=== PATIENT | male | born 1945 | race Caucasian/White ===

== ENCOUNTER → 2020-03-20 01:11 | Outpatient (CLI) | payer MEDICARE, SELFPAY ==
[2020-03-20 18:28] LABS: SARS-CoV-2 RNA PCR Negative
== END ==
PROVIDERS: Visit Provider Urology
DX: Z01.812 Encounter for preprocedural laboratory examination (principal); Z20.822 Contact with and (suspected) exposure to COVID-19
CPT/HCPCS: C9803; U0003; U0005

== ENCOUNTER 2020-03-23 00:05 | Day surgery (SDC) | payer MEDICARE, OTHER, SELFPAY ==
[2020-03-09 09:51] VITALS: BMI 30.7
--- NOTE | 2020-03-20 07:59 | P.HP_ITS ---
H&P: HPI History of Present Illness Date/Time: 03/20/20 07:59 Chief Complaint: Urinary difficulty/frequency Narrative: Timo Pineda is a 74 year old male who was originally referred to my partner, Dr. Fatemeh Maher, with findings of a calcified nodule in his bladder and on CT scan of the abdomen and pelvis. This turned out to be a median lobe with a partially calcified rim (according to Dr. Maher and cysto scopy). He is markedly symptomatic prostatism and is not felt to be a candidate for minimally invasive procedure such as a Urolift. After discussion of therapeutic options including ongoing medical management, he has elected for a TURP. He is aware of the risk of this procedure including persistent voiding symptoms, hematuria, erectile dysfunction, urinary incontinence and retrograde ejaculation. Review of Systems Cardiovascular: Cardiovascular: Denies chest pain, Denies lightheadedness, Denies palpitations and Denies dyspnea Respiratory: Respiratory: Denies dyspnea Gastrointestinal: Gastrointestinal: Denies diarrhea, Denies nausea and Denies vomiting Genitourinary: Genitourinary: Denies hematuria and Denies dysuria Endocrine: Endocrine: Denies palpitations [facility] Social History Social History Smoking status: Former smoker Additional smoking assessment comments: STATES 2PK/DAY/30=YRS QUIT 1994 Alcohol intake: current Substance use: never Substance use type: does not use Spiritual care concerns: No Meds Home Medications and Allergies Home Medications Medication Instructions Recorded Confirmed Type acetaminophen [Tylenol Extra 1,000 mg PO Q6H PRN 03/09/20 03/09/20 History Strength] amlodipine-benazepril [Lotrel] 1 cap PO HS 03/09/20 03/09/20 History aspirin [Aspirin Low Dose] 81 mg PO DAILY 03/09/20 03/09/20 History meloxicam [Mobic] 15 mg PO DAILY 03/09/20 03/09/20 History paroxetine HCl [Paxil] 10 mg PO QAM 03/09/20 03/09/20 History rosuvastatin [Crestor] 20 mg PO QAM 03/09/20 03/09/20 History Allergies Allergy/AdvReac Type Severity Reaction Status Date / Time No Known Allergies Allergy Verified 03/09/20 09:47 Exam Const: General: no acute distress Resp: Effort & Inspection: normal respiratory effort GI: Inspection: non-distended GI Palp: No abdominal tenderness and No Guarding due to palpation present (GI) Auscultation: normal bowel sounds Assessment and Plan Assessment and plan (1) BPH loc w urin obs/LUTS: Code(s): N40.1 - Benign prostatic hyperplasia with lower urinary tract symptoms Status: Acute Assessment and Plan: * TURP
[2020-03-23] VITALS (11 sets, daily range): BP systolic 112–172; BP diastolic 58–82; PULSE 56–75; RESP 10–18; TEMP 36.1–36.9; O2SAT 96–100; BMI 31.4
--- NOTE | 2020-03-23 06:36 | WPDHPUPDATE1 ---
History and Physical Update Update Date/Time: 03/23/20 06:36 History and Physical has been reviewed, including an updated exam of the patient. There are NO changes in the patient's condition. Risks, benefits, and alternatives have been discussed and questions answered. Patient agrees to proceed with procedure.
[2020-03-23] MEDS: LACTATED RINGERS 1,000 ML 30 ML IV CONT ×2 (12:23→14:20)
--- NOTE | 2020-03-23 12:24 | WPDANESEPPF ---
Anes - Initial Pre Proc Eval Procedure: Operation Date: 03/23/20 13:15 Proposed Procedures p Trans Urethral Resection Prostate - Damien Miguel MD Date/Time: 03/23/20 12:24 Surgeon: Damien Miguel MD Pre Op Diagnosis: BPH Patient Data Age: 74 Gender: M Height: 5 ft 8.5 in Weight: 93.18 kg Allergies Allergy/AdvReac Type Severity Reaction Status Date / Time No Known Allergies Allergy Verified 03/09/20 09:47 Home Medications Medication Instructions Recorded Confirmed Type acetaminophen [Tylenol Extra 1,000 mg PO Q6H PRN 03/09/20 03/09/20 History Strength] amlodipine-benazepril [Lotrel] 1 cap PO HS 03/09/20 03/09/20 History aspirin [Aspirin Low Dose] 81 mg PO DAILY 03/09/20 03/09/20 History meloxicam [Mobic] 15 mg PO DAILY 03/09/20 03/09/20 History paroxetine HCl [Paxil] 10 mg PO QAM 03/09/20 03/09/20 History rosuvastatin [Crestor] 20 mg PO QAM 03/09/20 03/09/20 History Patient hx anesthesia problems: none Family hx anesthesia problems: none [facility] Past Medical History Medical History (Updated 03/23/20 @ 12:24 by Jose Antonio Joseph MD) Anxiety H/O colon cancer, stage I Hyperlipidemia Hypertension Peripheral vascular disease Social History Social History Smoking status: Former smoker Additional smoking assessment comments: STATES 2PK/DAY/30=YRS QUIT 1994 Alcohol intake: current Alcohol use details: STATES MAYBE 3-4 DRINKS A MONTH Substance use: never Substance use type: does not use Living arrangements: with family Spiritual care concerns: No Anes - Eval Final PreProcedure Day of Procedure 03/23/20 12:24 Patient weight: obese Heart: regular rate and rhythm Lungs: clear to auscultation Airway: Mallampati scale class II Neurological: alert and oriented Last oral intake: >/= 8 hours ASA classification: III Emergent: no Anesthetic plan: proceed Anesthesia type and monitoring: general LMA and standard monitoring Informed Consent: The patient's anesthetic plan and its attendant risks and benefits were discussed with the patient/family/POA. Questions were solicited and answers provided to the satisfaction of the patient/family/POA.
[2020-03-23] MEDS: ceFAZolin 2 GM/D5W 50 ML 2 GM/50 ML BAG IVPB (13:10)
--- NOTE | 2020-03-23 14:32 | P.OP_ITS ---
Procedure Note - Detailed Date of procedure: 03/23/20 Pre-op diagnosis: BPH Post-op diagnosis: same Procedure performed: TURP Description of procedure: Patient is brought to the operative suite where he has prepped and draped in routine sterile fashion while in a dorsal lithotomy position after the uneventful induction of a general LMA anesthetic. Twenty- seven F resectoscope sheath was placed in his bladder. Careful inspection reveals a very unusual configuration to his prostatic urethra and bladder neck. He appears to have a large gross arising from around the bladder neck and growing into the left posterior lateral aspect of the bladder. This probably measures 6-7 cm in diameter and is covered by calcified rim. It looks to be arising from the prostate in line anticipation is that this is within unusual variant of either lateral lobe or median lobe of his prostate. In addition to that he has large lateral lobe enlargement. I resected this lesion in its entirety with a the electrode. It was somewhat difficult because of calcified rim. I was able to identify the ureteral orifice. There was some scope trauma to the area around the orifice but was not resected or cauterized. Then resected the entire left lateral lobe in the anterior portion of the right lateral lobe. Because of time I opted not to pursue aggressive resection of the posterior aspect of the right lateral lobe. Hemostasis attained with a loop e lectrode and rollerball electrode after evacuating all chips. Twenty-four F hematuria catheter was placed to continuous irrigation. Efflux was clear determination. Anesthesia: GLMA Surgeon: Damien Miguel MD Estimated blood loss (mL): 125 Drains: Yes (24F hematuria) Packing: No Pathology: yes Complications: No immediate complications Condition: stable Disposition: PACU
[2020-03-23] MEDS: fentaNYL CITRATE INJ (*CRX) 100 MCG/2 ML VIAL 25 MCG IV PUSH ×8 (14:33→15:18)
[2020-03-23] MEDS: KETOROLAC 30 MG/ML VIAL (*BKC) IV PUSH (14:53)
--- NOTE | 2020-03-23 15:50 | ADMGEN ---
This patient, Timo Pineda, was admitted to Medical Room 341-01. Patient/family oriented to hospital policies and general routines including ID bracelet, bed and alarms, visiting hours, pain management, procedures, bathroom and other care routines, personal items, smoking policy, room service/diet, and visiting hours. Information on how to activate the Rapid Response Team has been discussed. Patient/Family are encouraged to report perceived risks to care and to ask questions if they do not understand what they are told or what they should do.
[2020-03-23] MEDS: HYOSCYAMINE SULFATE 0.125 MG TABLET SUBLINGUAL ×2 (18:52→22:04)
[2020-03-23] MEDS: DOCUSATE SODIUM 100 MG CAPSULE PO (18:56)
[2020-03-23] MEDS: lisinopriL 20 MG TABLET 40 MG PO (22:01)
[2020-03-23] MEDS: amLODIPine BESYLATE 5 MG TABLET 10 MG PO (22:02)
[2020-03-24] MEDS: HYOSCYAMINE SULFATE 0.125 MG TABLET SUBLINGUAL ×4 (01:24→12:31)
[2020-03-24 05:30] VITALS: BP 123/49; PULSE 57; RESP 16; TEMP 36.1; O2SAT 100
[2020-03-24 06:06] LABS: Hematocrit 34.5 % (42.0-52.0)
[2020-03-24 06:15] LABS: Anion Gap 3 mmol/L (8-16); Blood Urea Nitrogen 29 mg/dL (9-20); Calcium 8.5 mg/dL (8.4-10.2); Carbon Dioxide 27 mmol/L (22-30); Chloride 105 mmol/L (98-107); Estimated CRCL calculation 40 ml/min; Estimated Glomerular Filt Rate 40; Glucose 128 mg/dL (75-110); Potassium 4.6 mmol/L (3.4-5.0); Sodium 135 mmol/L (137-145)
--- NOTE | 2020-03-24 06:51 | WPDUROPN2 ---
Progress Note: A&P Assessment and Plan (1) BPH loc w urin obs/LUTS: Code(s): N40.1 - Benign prostatic hyperplasia with lower urinary tract symptoms Status: Acute Assessment and Plan: POD #1 large TURP. Urine clear this morning after some hematuria last night. Will stop CBI. Voiding trial later today if urine remains clear. If not today, will keep overnight and try again for voiding trial Sat. morning. Subjective Subjective Date/Time Seen: 03/24/20 06:51 POD #1 TURP (large) Initial bladder spasms and hematuria last night - resolved this morning Review of Systems Cardiovascular: Cardiovascular: Denies chest pain, Denies lightheadedness, Denies palpitations and Denies dyspnea Respiratory: Respiratory: Denies dyspnea Gastrointestinal: Gastrointestinal: Denies diarrhea, Denies nausea and Denies vomiting Genitourinary: Genitourinary: Denies hematuria and Denies dysuria Endocrine: Endocrine: Denies palpitations Exam Const: General: no acute distress Resp: Effort & Inspection: normal respiratory effort GI: Inspection: non-distended GI Palp: No abdominal tenderness and No Guarding due to palpation present (GI) Auscultation: normal bowel sounds Urinary Catheter: Urinary Catheter: patent and draining and urine clear Objective Data Vital Signs Vital Signs: Vital Signs - 24 hr 03/23/20 11:37 03/23/20 14:20 03/23/20 14:35 Temperature 97.5 F L 98.4 F Pulse Rate 75 56 L 61 Respiratory Rate 16 14 10 L Blood Pressure 166/76 H 112/58 L 151/78 H Pulse Oximetry 99 98 100 03/23/20 14:50 03/23/20 15:05 03/23/20 15:20 Temperature Pulse Rate 66 61 66 Respiratory Rate 14 10 L 12 Blood Pressure 172/82 H 150/67 H Pulse Oximetry 98 97 96 03/23/20 15:31 03/23/20 15:46 03/23/20 16:16 Temperature 97.2 F L 97.1 F L 97.3 F L Pulse Rate 69 60 61 Respiratory Rate 16 16 16 Blood Pressure 172/72 H 157/64 H 149/65 H Pulse Oximetry 97 98 97 03/23/20 17:16 03/23/20 20:47 03/24/20 05:30 Temperature 97.1 F L 97 F L 97 F L Pulse Rate 62 63 57 L Respiratory Rate 16 18 16 Blood Pressure 128/70 122/61 123/49 L Pulse Oximetry 97 97 100 Intake/Output Intake/Output: Intake & Output 03/21/20 03/22/20 03/23/20 03/24/20 23:59 23:59 23:59 23:59 Intake Total 1080 50 Output Total 4550 Balance -3470 50 Meds/Results Medications: Active Medications Generic Name Dose Route Start Last Admin Trade Name Freq PRN Reason Stop Dose Admin Hydrocodone Bitart/Acetaminophen 1 tab 03/23/20 15:31 Hydrocodone/Acetaminophen (*Crx) 5-325 Mg Tablet PO Q4H PRN Pain Rated 1-6 Amlodipine Besylate 10 mg 03/23/20 21:00 03/23/20 22:02 Amlodipine Besylate 5 Mg Tablet PO 10 mg HS JOSE Administration Cephalexin HCl 500 mg 03/24/20 13:00 Cephalexin 500 Mg Capsule PO QID JOSE Docusate Sodium 100 mg 03/23/20 17:00 03/23/20 18:56 Docusate Sodium 100 Mg Capsule PO 100 mg BID JOSE Administration Hyoscyamine 0.125 mg 03/23/20 22:00 03/24/20 05:29 Hyoscyamine Sulfate 0.125 Mg Tablet SUBLINGUAL 0.125 mg Q4HR JOSE Administration Lisinopril 40 mg 03/23/20 21:00 03/23/20 22:01 Lisinopril 20 Mg Tablet PO 40 mg HS JOSE Administration Morphine Sulfate 2 mg 03/23/20 15:31 Morphine Sulfate (*Crx) 2 Mg/Ml Inj IV PUSH Q2H PRN Pain Rated 7-10 Naloxone HCl 0.1 mg 03/23/20 15:31 Naloxone Hcl 0.4 Mg/Ml Vial IV PUSH Q2M PRN Opiate Reversal Ondansetron HCl 4 mg 03/23/20 15:31 Ondansetron Inj 4 Mg/2 Ml Vial IV PUSH Q12H PRN Nausea And Vomiting Paroxetine HCl 10 mg 03/24/20 09:00 Paroxetine 10 Mg Tablet PO QAM [facility] Rosuvastatin Calcium 20 mg 03/24/20 09:00 [facility]uvastatin 10 [facility] Labs: Laboratory Results - last 24 hr 03/24/20 03/24/20 05:32 05:32 Hgb 12.0 L Hct 34.5 L Sodium 135 L Potassium 4.6 Chloride 105 Carbon Dioxide 27 Anion Gap
[2020-03-24] MEDS: ROSUVASTATIN 10 MG TABLET 20 MG PO (08:11)
[2020-03-24] MEDS: DOCUSATE SODIUM 100 MG CAPSULE PO (08:11)
[2020-03-24] MEDS: PARoxetine 10 MG TABLET PO (08:11)
[2020-03-24] MEDS: HYDROcodone/acetaminophen (*CRX) 5-325 MG TABLET 1 TAB PO ×2 (08:14→12:35)
--- NOTE | 2020-03-24 10:57 | WPDANESPN ---
Anes - Prog Note Post-Op Date/Time: 03/24/20 10:57 Cardiovascular status: normal Respiratory status: normal Airway patency: baseline Mental status: baseline Post-Op hydration status: normal Vital Signs: Last Vital Signs Temp 36.1 C L 03/24/20 05:30 Pulse 57 L 03/24/20 05:30 Resp 16 03/24/20 05:30 BP 123/49 L 03/24/20 05:30 Pulse Ox 100 03/24/20 05:30 Pain Score (VAS): 02/19 I/O: Intake & Output 03/23/20 03/24/20 03/24/20 23:59 07:59 15:59 Intake Total 290 50 240 Output Total 4550 Balance -4260 50 240 Laboratory Tests 03/24/20 05:32 03/24/20 05:32 03/24/20 03/24/20 05:32 05:32 Hgb 12.0 L Hct 34.5 L Sodium 135 L Potassium 4.6 Chloride 105 Carbon Dioxide 27 Anion Gap 3 L BUN 29 H Creatinine 1.70 H Estim Creat Clear Calc 40 Estimated GFR 40 L Glucose 128 H Calcium 8.5 Post-procedural complaints: none Patient Feedback: Patient satisfied with anesthetic care.
[2020-03-24] MEDS: CEPHALEXIN 500 MG CAPSULE PO (12:31)
[2020-03-24 14:00] VITALS: BP 166/57; PULSE 63; RESP 16; TEMP 35.8; O2SAT 100
--- NOTE | 2020-03-24 16:04 | P.DS_ITS ---
DS: Admitting Diagnosis Admitting Diagnosis Admitting Diagnosis: BPH DS: Discharge Diagnosis Discharge Diagnosis (1) BPH loc w urin obs/LUTS: Code(s): N40.1 - Benign prostatic hyperplasia with lower urinary tract symptoms Status: Acute DS: Summary Hospital Course Hospital Course: This patient with longstanding prostatism refractory for medical management was admitted on the morning of his planned TURP. The procedure was undertaken on that same day in an uneventful fashion. His post- operative course was, likewise, uneventful. On the evening of the procedure he was tolerating a diet. On POD#1 his urine was clear on CBI. The urine remained clear and, therefore, the catheter was removed late morning. The patient was observed for several hours, until he demonstrated he could void effectively without significant hematuria. He was discharged with careful instruction on limiting physical activity x2 weeks and plans to f/ in 2-3 weeks. At discharge he was comfortable and tolerating a diet. Time Spent with Patient Time attestation: Total time spent providing and/or coordinating discharge services: 20 min. Exam Const: General: no acute distress Resp: Effort & Inspection: normal respiratory effort GI: Inspection: non-distended GI Palp: No abdominal tenderness and No Guarding due to palpation present (GI) Auscultation: normal bowel sounds DS: Data Data Completed and Pending Pending studies at discharge: Pending at discharge 03/23/20 13:41 Surgical [PTH] Routine Labs on day of discharge: Labs from last 24 hours 03/24/20 03/24/20 05:32 05:32 Hgb 12.0 L Hct 34.5 L Sodium 135 L Potassium 4.6 Chloride 105 Carbon Dioxide 27 Anion Gap 3 L BUN 29 H Creatinine 1.70 H Estim Creat Clear Calc 40 Estimated GFR 40 L Glucose 128 H Calcium 8.5 Discharge Plan Discharge Patient Disposition: Home, Self-Care Discharge Instructions: 1) Activity: No lifting/straining >15lbs. x2 weeks. 2) Diet: Resume normal pre-admission diet. 3) Follow-up: 2-3 weeks / call office for appointment (follow-up with Dr. Maher in [place] is OK). Patient Instructions: How to Stop Smoking (DC) Discharge Orders: Discharge Order (Routine); Ordered 03/24/20 Ordered By: Damien Miguel Discharge Medications: New ciprofloxacin HCl 500 mg tablet 500 mg PO Q12H Qty: 10 RF: 0 docusate sodium [Colace] 100 mg capsule 100 mg PO DAILY Qty: 30 RF: 0 hydrocodone-acetaminophen 5-325 mg tablet 1 - 2 tablet PO Q6H PRN (Reason: pain) Qty: 20 RF: 0 Continued paroxetine HCl [Paxil] 10 mg Tablet 10 mg PO QAM RF: 0 acetaminophen [Tylenol Extra Strength] 500 mg Tablet 1,000 mg PO Q6H PRN (Reason: Pain) RF: 0 rosuvastatin [Crestor] 20 mg Tablet 20 mg PO QAM RF: 0 amlodipine-benazepril [Lotrel] 10-40 mg Capsule 1 cap PO HS RF: 0 Held meloxicam [Mobic] 15 mg Tablet 15 mg PO DAILY RF: 0 Hold Instructions: Resume on 03/26/20. aspirin [Aspirin Low Dose] 81 mg Tablet,Delayed Release (Dr/Ec) 81 mg PO DAILY RF: 0 Hold Instructions: Resume on 03/29/20.
== END 2020-03-24 16:38 | disposition home or self-care (01) ==
LOC: ANHSURGERY 11:42 → ANH3MED 15:32
PROVIDERS: PCP Family Medicine; Visit Provider Urology
PROC: 0VT08ZZ Resection of Prostate, Via Natural or Artificial Opening Endoscopic (ICD-10-PCS; CPT 52601; principal; 2020-03-23 13:15)
DX: N40.1 Benign prostatic hyperplasia with lower urinary tract symptoms (principal); I10 Essential (primary) hypertension; E78.5 Hyperlipidemia, unspecified; I73.9 Peripheral vascular disease, unspecified; F41.9 Anxiety disorder, unspecified; Z85.038 Personal history of other malignant neoplasm of large intestine; Z87.891 Personal history of nicotine dependence; E66.9 Obesity, unspecified; Z68.31 Body mass index [BMI] 31.0-31.9, adult
CPT/HCPCS: 52601; 36415; 80048; 85014; 85018; 88305; A9270; C1758; J0690; J1100; J1885; J2405; J2704; J3010; J7120

== ENCOUNTER 2020-03-26 11:17 | Inpatient (IN) | payer MEDICARE, OTHER, SELFPAY ==
[2020-03-26] VITALS (8 sets, daily range): BP systolic 142–176; BP diastolic 42–73; PULSE 65–98; RESP 16–20; TEMP 36.4–36.8; O2SAT 97–100; BMI 31.6
[2020-03-26] MEDS: LIDOCAINE HCL 2% GEL UROJET 10 ML PKG (12:17)
--- NOTE | 2020-03-26 12:26 | PC.NURSE ---
CBI in place, urine specimen not obtained prior to CBI. Dr. Velasco aware and states its not needed
[2020-03-26 12:50] LABS: Basophils Absolute Auto 0.1 K/mm3 (0.0-0.1); Basophils Percent Auto 0.7 % (0.2-1.2); Eosinophils Absolute Auto 0.3 K/mm3 (0-0.3); Eosinophils Percent Auto 2.8 % (0-4.4); Hemoglobin 10.1 g/dL (14.0-18.0); Immature Granulocyte Absolute 0.06 K/mm3 (0.00-0.031); Immature Granulocyte Percent A 0.6 % (0-0.5); Lymphocytes Absolute Auto 1.73 K/mm3 (0.9-3.2); Lymphocytes Percent Auto 16.2 % (18.3-44.2); Mean Corpuscular HGB Conc 33.7 g/dl (32-36); Mean Corpuscular Hemoglobin 30.2 pg (26-34); Mean Corpuscular Volume 89.8 fl (80-100); Mean Platelet Volume 9.3 fl (7.4-10.4); Monocytes Percent Auto 9.7 % (2.6-8.5); Neutrophils Absolute Auto 7.5 K/mm3 (1.3-6.7); Platelet Count Result 258 k/mm3 (150-375); Red Blood Count 3.34 M/mm3 (4.6-6.20); Red Cell Distribution Width 12.3 % (11.5-14.5); White Blood Count 10.7 K/mm3 (4.5-10.0)
[2020-03-26 13:01] LABS: Partial Thromboplastin Time 28.5 SECONDS (22.3-36.8); Prothrombin Time 13.8 Seconds (11.1-14.7)
[2020-03-26 13:02] LABS: Alanine Aminotransferase 16 U/L (4-50); Albumin Level 3.7 g/dL (3.5-5.1); Alkaline Phosphatase 68 U/L (38-126); Anion Gap 3 mmol/L (8-16); Aspartate Amino Transferase 25 U/L (17-59); Bilirubin,Total 0.6 mg/dL (0.2-1.3); Blood Urea Nitrogen 19 mg/dL (9-20); Calcium 9.2 mg/dL (8.4-10.2); Carbon Dioxide 31 mmol/L (22-30); Chloride 105 mmol/L (98-107); Estimated CRCL calculation 46 ml/min; Estimated Glomerular Filt Rate 46; Glucose 103 mg/dL (75-110); Potassium 3.8 mmol/L (3.4-5.0); Sodium 139 mmol/L (137-145)
--- NOTE | 2020-03-26 13:13 | ED.MALEGU ---
HPI - Male Genitourinary General Chief complaint: Urogenital-Male Stated complaint: urinary issues, post TURP Time Seen by Provider: 03/26/20 11:32 Source: patient Mode of arrival: ambulatory Limitations: no limitations History of Present Illness HPI Narrative: This patient is a 74 year old male who presents for evaluation of blount catheter malfunction s/p TURP. He reports Dr. Miguel performed a TURP on . He was discharged home on Friday on antibiotics. He developed difficulty urinating and urinary retention, so he was evaluated in an ER in [place] yesterday. He had blount catheter placed at that time. He reports blood in his urine since his procedure. He has noticed that urine is drainage around his catheter so he has been attempting to irrigate at home. He denies lower abdominal pain, pressure, nausea, vomiting, fever or back pain. He denies taking any blood thinners. Related Data Home Medications Medication Instructions Recorded Confirmed acetaminophen [Tylenol Extra 1,000 mg PO Q6H PRN 03/09/20 03/23/20 Strength] amlodipine-benazepril [Lotrel] 1 cap PO HS 03/09/20 03/23/20 aspirin [Aspirin Low Dose] 81 mg PO DAILY 03/09/20 03/23/20 meloxicam [Mobic] 15 mg PO DAILY 03/09/20 03/23/20 paroxetine HCl [Paxil] 10 mg PO QAM 03/09/20 03/23/20 rosuvastatin [Crestor] 20 mg PO QAM 03/09/20 03/23/20 Allergies Allergy/AdvReac Type Severity Reaction Status Date / Time No Known Allergies Allergy Verified 03/26/20 11:22 Review of Systems Review of Systems: All systems reviewed & are unremarkable except as noted in HPI and below PMFSH Past Medical History Medical History (Updated 03/26/20 @ 18:32 by Liyah Velasco MD) Anxiety H/O colon cancer, stage I Hyperlipidemia Hypertension Peripheral vascular disease Surgical History Surgical History (Updated 03/26/20 @ 13:24 by Liyah Velasco MD) S/P TURP Social History Social History Smoking packs per day: 2 Smoking cigarettes per day: 40.0 Years smoked: 30 Smoking pack-years: 60.00 Smoking status: Former smoker Tobacco type: cigarettes and smokeless tobacco Smokeless tobacco user: chewing tobacco Additional smoking assessment comments: STATES 2PK/DAY/30=YRS QUIT 1994 Alcohol intake: never Substance use: never Substance use type: does not use Gender identity (if verbalized by the patient): Male Spiritual care concerns: No Exam Narrative: Exam Narrative: GENERAL: Well-appearing, well-nourished, and in no acute distress. HEAD: Normocephalic, atraumatic EYES: PERRLA and EOMI, conjunctiva clear without discharge THROAT:Mucous membranes moist, Oropharynx normal without erythema, exudate, peritonsillar swelling or fluctuance NECK: Supple, without lymphadenopathy or mass RESPIRATORY: No respiratory distress, Airway patent, Respirations non-labored, Clear to auscultation without rales, rhonchi or wheeze HEART: Regular rate and rhythm. No murmur heard. Normal peripheral pulses. ABDOMEN: Soft, nontender, nondistended, normal active bowel sounds. No masses. No rebound or guarding, No organomegaly. EXTREMITIES: No edema, normal strength with full range of motion. SKIN: Warm, dry, normal color without rash NEURO: Alert and oriented x3. CN 2-12 grossly intact. No focal deficits. PSYCH: Normal mood and affect. Urinary Catheter: Urinary Catheter: urine red and urine with clots Course Reevaluation(s) Reevaluation #1: Patient is currently getting CBI. It is draining clear at this time. Nursing staff reports they were able to remove large clots during irrigation Date: 03/26/20 Time: 13:15 Reevaluation #2: After receiving CBI with 7 bags patient was appearing to be clear. Once catheter was clamped patient started draining red urine again and having pressure. He will be admitted for evaluation by Dr. Miguel tomorrow. I have been talking to Dr. Yoder who states he
--- NOTE | 2020-03-26 14:51 | PC.NURSE ---
After 3 bags of irrigation,output is pink tinged
--- NOTE | 2020-03-26 16:25 | PC.NURSE ---
Irrigation clear after 5 bags.
--- NOTE | 2020-03-26 16:52 | PC.NURSE ---
Pt called out and stated that he felt the urge to urinate and then stated that he urinated around the catheter. This RN hand irrigated and multiple clots came out.
--- NOTE | 2020-03-26 18:06 | PC.NURSE ---
Dinner ordered for patient
--- NOTE | 2020-03-26 20:18 | ADMGEN ---
This patient, Timo Pineda, was admitted to [facility] Surg Room 312-01. Patient/family oriented to hospital policies and general routines including ID bracelet, bed and alarms, visiting hours, pain management, procedures, bathroom and other care routines, personal items, smoking policy, room service/diet, and visiting hours. Information on how to activate the Rapid Response Team has been discussed. Patient/Family are encouraged to report perceived risks to care and to ask questions if they do not understand what they are told or what they should do.
--- NOTE | 2020-03-26 23:20 | PM.IMHP ---
H&P: HPI History of Present Illness Date/Time: 03/26/20 23:20 Chief Complaint: Hematuria Narrative: Timo Pineda is a 74 year old male who has a history of BPh. patient was admitted by urology on 03/23/2020 and it looks like he received a TURP on that day for BPH. Please see his procedure note. this was performed by Dr. doe. the patient was discharged on 03/24/2020. It was noted that she the procedure she was uneventful. On postop day 1 his urine was clear per CBI. The catheter was removed that morning and then he was discharged to home FD who was able to urinate. Friday the patient was having difficulty urinating any went to [facility] and a Lee catheter was placed. The patient stated that when he went home he was still urinating around the catheter and that it clots in the catheter. The patient was very uncomfortable. So he came here today. He received a CBI today and it was mostly clear. The patient was getting ready to go home when he noticed that he started she urinate around the Lee catheter again. Multiple clots were pulled out of the CBI. The CBI was continued after that and the patient was admitted for observation. Urology had been notified and suggested that the patient be admitted to the hospitalist services on the date of service of 03/26/2020. Review of Systems Review of Systems: All systems reviewed & are unremarkable except as noted in HPI and below Constitutional: Constitutional: Reports as per HPI and Reports no additional constitutional complaints Eyes: Eyes: Reports as per HPI and Reports no additional eye complaints ENT: Reports system reviewed and no additional complaints, except as documented and Reports Normal hearing present Cardiovascular: Cardiovascular: Reports no additional cardiovascular complaints Respiratory: Respiratory: Reports no additional respiratory complaints and Reports no additional respiratory complaints Gastrointestinal: Gastrointestinal: Reports as per HPI and Reports no additional gastrointestinal complaints Musculoskeletal: Musculoskeletal: Reports no additional musculoskeletal complaints Integumentary/Breasts: Skin/Breast: Reports system reviewed and no additional complaints, except as docu and Reports as per HPI Neurologic: Reports system reviewed and no additional complaints, except as documented, Reports as per HPI and Reports Normal hearing present Psychiatric: Psychiatric: Reports no additional psychiatric complaints and Reports as per HPI Endocrine: Endocrine: Reports no additional endocrine complaints Hematologic/Lymphatic: Hematologic/Lymphatic: Reports no additional hematologic/lymphatic complaints Allergic/Immunologic: Allergic/Immunologic: Reports no additional allergic/immunologic complaints PMFSH Past Medical History Medical History (Updated 03/26/20 @ 23:37 by Kay Young NP) Anxiety BPH (benign prostatic hyperplasia) Carotid artery disease H/O colon cancer, stage I stage III with a colectomy with 1 lymph node involvement and chemotherapy. Hyperlipidemia Hypertension Peripheral vascular disease Surgical History Surgical History (Updated 03/26/20 @ 23:37 by Kay Young NP) H/O carotid endarterectomy on the right knee scheduled to have 1 on the left H/O colectomy H/O colonoscopy with polypectomy S/P tonsillectomy and adenoidectomy S/P TURP Family History Family History (Updated 03/26/20 @ 23:39 by Kay Young NP) Father Heart disease Hypertension Sibling Heart disease Hypertension Mother Heart disease Hypertension Social History Social History (Updated 03/26/20 @ 23:41 by Kay Young NP) Social History: the patient stated that he quit smoking in 1994 and started to use smokeless tobacco he would chew tobacco and quit about 2 years ago. The patient lives with his who is listed as Marlene pineda. 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
[2020-03-27] MEDS: amLODIPine BESYLATE 5 MG TABLET 10 MG BY MOUTH ×2 (00:03→18:08)
[2020-03-27] MEDS: lisinopriL 20 MG TABLET 40 MG PO ×2 (00:03→18:08)
[2020-03-27 00:31] LABS: Hematocrit 29.1 % (42.0-52.0)
[2020-03-27 06:00] VITALS: BP 157/49; PULSE 69; RESP 18; TEMP 36.6; O2SAT 95
[2020-03-27 06:42] LABS: Hematocrit 28.6 % (42.0-52.0); Hemoglobin 9.7 g/dL (14.0-18.0)
--- NOTE | 2020-03-27 06:46 | WPDURCON ---
Assessment and Plan Assessment and plan (1) BPH (benign prostatic hyperplasia): Code(s): N40.0 - Benign prostatic hyperplasia without lower urinary tract symptoms Status: Chronic (2) Acute retention of urine: Code(s): R33.8 - Other retention of urine Status: Acute (3) Gross hematuria: Code(s): R31.0 - Gross hematuria Status: Acute Assessment and Plan: Hematuria appears to have stopped with placement of a 3 way catheter and, currently, he has no collapse in his bladder. Will plan indwelling catheter with slow CBI throughout today. Tomorrow morning, if urine remains clear, we will make decision regarding either another voiding trial versus discharge with indwelling catheter for several days. 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 his postoperative course was eventful for some hematuria with clots over the 1st 12 hours. Within 24 hours however his urine had cleared and his catheter was removed. He was discharged home Friday afternoon voiding well. He continues to do well for approximately 12 hours, after which the hematuria recurred. This may have been precipitated by some straining to have a bowel movement. He developed clots which were difficult past. He presented to the emergency room in [place] where a simple 2 way catheter was placed. The short period of time that a clotted off prompting 3 presentation here with placement of a 3 way catheter. Nursing staff irrigated some clots and started him on CBI. His urine is running clear through the night and, by my irrigation today, his absolutely no clots in the bladder. Throughout this he has had no dizziness lightheadedness his pain shortness of breath or other complaints. Review of Systems Cardiovascular: Cardiovascular: Denies chest pain, Denies lightheadedness, Denies palpitations and Denies dyspnea Respiratory: Respiratory: Denies dyspnea Gastrointestinal: Gastrointestinal: Denies diarrhea, Denies nausea and Denies vomiting Genitourinary: Genitourinary: Denies hematuria and Denies dysuria Endocrine: Endocrine: Denies palpitations PMFSH Past Medical History Medical History Anxiety BPH (benign prostatic hyperplasia) Carotid artery disease H/O colon cancer, stage I stage III with a colectomy with 1 lymph node involvement and chemotherapy. Hyperlipidemia Hypertension Peripheral vascular disease Surgical History Surgical History H/O carotid endarterectomy on the right knee scheduled to have 1 on the left H/O colectomy H/O colonoscopy with polypectomy S/P tonsillectomy and adenoidectomy S/P TURP Family History Family History Father Heart disease Hypertension Sibling Heart disease Hypertension Mother Heart disease Hypertension Social History Social History Social History: the patient stated that he quit smoking in 1994 and started to use smokeless tobacco he would chew tobacco and quit about 2 years ago. The patient lives with his who is listed as Marlene pineda. he does admits his daughter Cecilia and his to be durable power buttermaker for healthcare. Patient desires to be a full code. 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 The patient denies any alcohol marijuana or illicit drugs. Smoking packs per day: 2 Smoking cigarettes per day: 40.0 Years smoked: 30 Smoking pack-years: 60.00 Smoking status: Former smoker Tobacco type:
[2020-03-27 06:49] LABS: Alanine Aminotransferase 16 U/L (4-50); Albumin Level 3.3 g/dL (3.5-5.1); Alkaline Phosphatase 73 U/L (38-126); Anion Gap 2 mmol/L (8-16); Aspartate Amino Transferase 24 U/L (17-59); Bilirubin,Total 0.5 mg/dL (0.2-1.3); Blood Urea Nitrogen 17 mg/dL (9-20); Calcium 9.1 mg/dL (8.4-10.2); Carbon Dioxide 31 mmol/L (22-30); Chloride 106 mmol/L (98-107); Estimated CRCL calculation 45 ml/min; Estimated Glomerular Filt Rate 46; Glucose 114 mg/dL (75-110); Potassium 3.9 mmol/L (3.4-5.0); Sodium 139 mmol/L (137-145)
[2020-03-27] MEDS: HYDROcodone/acetaminophen (*CRX) 5-325 MG TABLET 1 TAB PO (07:00)
[2020-03-27] MEDS: WATER FOR IRRIGATION, STERILE 1,000 ML BOTTLE 1000 ML (08:41)
[2020-03-27] MEDS: CIPROFLOXACIN 500 MG TAB PO ×2 (08:42→21:00)
[2020-03-27] MEDS: MAGNESIUM CITRATE 300 ML BTL PO (08:42)
[2020-03-27] MEDS: PARoxetine 10 MG TABLET PO (08:42)
[2020-03-27] MEDS: DOCUSATE SODIUM 100 MG CAPSULE PO (08:42)
[2020-03-27 10:22] VITALS: O2SAT 95
[2020-03-27] MEDS: ROSUVASTATIN 10 MG TABLET PO (11:01)
[2020-03-27 11:46] LABS: Hemoglobin 9.7 g/dL (14.0-18.0)
[2020-03-27 14:00] VITALS: BP 130/55; PULSE 78; RESP 16; TEMP 36.4; O2SAT 98
[2020-03-27 17:38] LABS: Hematocrit 31.5 % (42.0-52.0); Hemoglobin 10.8 g/dL (14.0-18.0)
--- NOTE | 2020-03-27 21:31 | PM.IMPN ---
Progress Note: A&P Assessment and Plan (1) BPH loc w urin obs/LUTS: Code(s): N40.1 - Benign prostatic hyperplasia with lower urinary tract symptoms Status: Acute Assessment and Plan: Patient presents with hematuria/ clots clogging Lee catheter after recent transurethral resection of a bladder mass by Dr Miguel 03/23/20. He was discharged without Lee catheter 03/24 after voiding without difficulty. He experienced hematuria over the weekend, presented to outside hospital who placed Lee catheter. He then began to pass blot clots which likely clogged the catheter since he was urinating around the catheter. Presented again to our facility in this setting. Management per urology. On CBI today without further hematuria. On Cipro per Dr Miguel. Anticipate likely discharge tomorrow with urology recommendations. (2) Gross hematuria: Code(s): R31.0 - Gross hematuria Status: Acute Assessment and Plan: See above. H&H low but stable. (3) Acute retention of urine: Code(s): R33.8 - Other retention of urine Status: Acute Assessment and Plan: See above. (4) BPH (benign prostatic hyperplasia): Code(s): N40.0 - Benign prostatic hyperplasia without lower urinary tract symptoms Status: Chronic Assessment and Plan: See above. (5) Anxiety: Code(s): F41.9 - Anxiety disorder, unspecified Status: Chronic Assessment and Plan: Stable, continue his home Paxil. (6) Hypertension: Code(s): I10 - Essential (primary) hypertension Status: Chronic Assessment and Plan: BPs variable but reasonably stable maintained on his home antihypertensive regimen. (7) Hyperlipidemia: Code(s): E78.5 - Hyperlipidemia, unspecified Status: Chronic Assessment and Plan: Maintained on his home statin therapy. Subjective Date/time seen: 03/27/20 1000 Interval history: Mr. Pineda is a pleasant 74yo M admitted for hematuria. He is constipated but otherwise feeling well and offers no complaints. He denies chest pain, shortness of breath, nausea or vomiting. Review of Systems Review of Systems: All systems reviewed & are unremarkable except as noted in HPI and below Exam Narrative: Exam Narrative: General: Male resting supine in bed in no acute distress. HEENT: Normocephalic, EOMI, oral mucosa moist. Cardiovascular: Rate and rhythm are regular. Respiratory: Lungs clear to auscultation bilaterally. Respirations even and non-labored. Abdomen: Soft, non-tender, non-distended, bowel sounds present. Extremities: Peripheral pulses intact. No edema or pain to palpation. Neuro: No focal neurological deficits. Speech is clear. 3-way Lee catheter patent draining clear pale yellow urine with CBI running; no blood or clots in bag. Objective Data Vital Signs Vital Signs: Last Vital Signs Temp 98.2 F 03/27/20 22:00 Pulse 77 03/27/20 22:00 Resp 18 03/27/20 22:00 BP 139/50 L 03/27/20 22:00 Pulse Ox 98 03/27/20 22:00 Intake/Output Intake/Output: Intake & Output 03/24/20 03/25/20 03/26/20 03/27/20 23:59 23:59 23:59 23:59 Intake Total 47799 1710 Output Total 12112 2650 Balance 0 -940 Meds/Results Medications: Active Medications Generic Name Dose Route Start Last Admin Trade Name Freq PRN Reason Stop Dose Admin Acetaminophen 1,000 mg 03/26/20 23:49 Acetaminophen 500 Mg Tablet PO Q6H PRN Pain Rated 1-3 Hydrocodone Bitart/Acetaminophen 1 tab 03/26/20 23:19 03/27/20 07:00 Hydrocodone/Acetaminophen (*Crx) 5-325 Mg Tablet PO 1 tab Q6H PRN Administration Pain Rated 4-6
[2020-03-27 22:00] VITALS: BP 139/50; PULSE 77; RESP 18; TEMP 36.8; O2SAT 98
[2020-03-28 05:37] VITALS: BP 112/51; PULSE 61; RESP 18; TEMP 36.7; O2SAT 96
[2020-03-28 06:11] LABS: Basophils Absolute Auto 0.1 K/mm3 (0.0-0.1); Basophils Percent Auto 0.9 % (0.2-1.2); Eosinophils Absolute Auto 0.6 K/mm3 (0-0.3); Eosinophils Percent Auto 6.3 % (0-4.4); Hematocrit 27.4 % (42.0-52.0); Hemoglobin 9.2 g/dL (14.0-18.0); Immature Granulocyte Absolute 0.04 K/mm3 (0.00-0.031); Immature Granulocyte Percent A 0.4 % (0-0.5); Lymphocytes Absolute Auto 2.23 K/mm3 (0.9-3.2); Lymphocytes Percent Auto 22.9 % (18.3-44.2); Mean Corpuscular HGB Conc 33.6 g/dl (32-36); Mean Corpuscular Hemoglobin 30.4 pg (26-34); Mean Corpuscular Volume 90.4 fl (80-100); Mean Platelet Volume 9.7 fl (7.4-10.4); Monocytes Absolute Auto 0.8 K/mm3 (0.1-0.6); Monocytes Percent Auto 8.5 % (2.6-8.5); Neutrophils Absolute Auto 5.9 K/mm3 (1.3-6.7); Platelet Count Result 275 k/mm3 (150-375); Red Blood Count 3.03 M/mm3 (4.6-6.20); Red Cell Distribution Width 12.2 % (11.5-14.5); White Blood Count 9.7 K/mm3 (4.5-10.0)
[2020-03-28 06:38] LABS: Anion Gap 3 mmol/L (8-16); Blood Urea Nitrogen 19 mg/dL (9-20); Calcium 8.6 mg/dL (8.4-10.2); Carbon Dioxide 32 mmol/L (22-30); Chloride 103 mmol/L (98-107); Estimated CRCL calculation 45 ml/min; Estimated Glomerular Filt Rate 46; Glucose 103 mg/dL (75-110); Magnesium 2.3 mg/dL (1.6-2.3); Potassium 3.7 mmol/L (3.4-5.0); Sodium 138 mmol/L (137-145)
[2020-03-28] MEDS: CIPROFLOXACIN 500 MG TAB PO (08:46)
[2020-03-28] MEDS: DOCUSATE SODIUM 100 MG CAPSULE PO (08:46)
[2020-03-28] MEDS: PARoxetine 10 MG TABLET PO (08:46)
[2020-03-28] MEDS: ROSUVASTATIN 10 MG TABLET PO (08:46)
--- NOTE | 2020-03-28 11:57 | WPDUROPN2 ---
Progress Note: A&P Assessment and Plan (1) Gross hematuria: Code(s): R31.0 - Gross hematuria Status: Acute Assessment and Plan: Urine is clear with no CBI. Will remove Lee for voiding trial. He is able to void without difficulty he can be discharged home later today from our standpoint. If he is unable to void Lee catheter can be replaced in the be discharged home with a Lee for voiding trial later in the week at Dr. Miguel' office Subjective Subjective Date/Time Seen: 03/28/20 11:57 Principal diagnosis: Gross hematuria Interval history: Patient is feeling much better. His urine is actually fairly clear with no CBI at this time running. He would like to have a voiding trial and possibly be discharged later home today Review of Systems Review of Systems: All systems reviewed & are unremarkable except as noted in HPI and below Exam Const: General: cooperative, comfortable and no acute distress Resp: Effort & Inspection: normal respiratory effort Cardio: Rate: regular rate GI: Inspection: normal to inspection Urinary Catheter: Urinary Catheter: patent and draining and urine clear Objective Data Vital Signs Vital Signs: Vital Signs - 24 hr 03/27/20 14:00 03/27/20 22:00 03/28/20 05:37 Temperature 36.4 C 36.8 C 36.7 C Pulse Rate 78 77 61 Respiratory Rate 16 18 18 Blood Pressure 130/55 L 139/50 L 112/51 L Pulse Oximetry 98 98 96 Intake/Output Intake/Output: Intake & Output 03/25/20 03/26/20 03/27/20 03/28/20 23:59 23:59 23:59 23:59 Intake Total 20469 2070 570 Output Total 29742 2650 1500 Balance 0 -580 -930 Meds/Results Medications: Active Medications Generic Name Dose Route Start Last Admin Trade Name Freq PRN Reason Stop Dose Admin Acetaminophen 1,000 mg 03/26/20 23:49 Acetaminophen 500 Mg Tablet PO Q6H PRN Pain Rated 1-3 Hydrocodone Bitart/Acetaminophen 1 tab 03/26/20 23:19 03/27/20 07:00 Hydrocodone/Acetaminophen (*Crx) 5-325 Mg Tablet PO 1 tab Q6H PRN Administration Pain Rated 4-6 Amlodipine Besylate 10 mg 03/26/20 23:45 03/27/20 18:08 Amlodipine Besylate 5 Mg Tablet BY MOUTH 10 mg DAILY@1900 [facility] Administration Ciprofloxacin 500 mg 03/27/20 09:00 03/28/20 08:46 Ciprofloxacin 500 Mg Tab PO 500 mg Q12HR [facility] Administration Docusate Sodium 100 mg 03/27/20 09:00 03/28/20 08:46 Docusate Sodium 100 Mg Capsule PO 100 mg DAILY [facility] Administration Lisinopril 40 mg 03/26/20 23:50 03/27/20 18:08 Lisinopril 20 Mg Tablet PO 40 mg DAILY@1900 [facility] Administration Ondansetron HCl 4 mg 03/26/20 18:23 Ondansetron Inj 4 Mg/2 Ml Vial IV PUSH Q4H PRN Nausea Paroxetine HCl 10 mg 03/27/20 09:00 03/28/20 08:46 Paroxetine 10 Mg Tablet PO 10 mg QAM [facility] Administration Rosuvastatin Calcium 10 mg 03/27/20 09:00 03/28/20 08:46 Rosuvastatin 10 Mg Tablet PO 10 mg QAM [facility] Administration Labs Labs: Laboratory Results - last 24 hr 03/27/20 03/28/20 03/28/20 17:33 05:41 05:41 WBC 9.7 RBC 3.03 L Hgb 10.8 L 9.2 L Hct 31.5 L 27.4 L MCV 90.4 MCH 30.4 MCHC 33.6 RDW 12.2 Plt Count 275 MPV 9.7 Immature Gran % (Auto) 0.4 Neut % (Auto) 61.0 Lymph % (Auto) 22.9 [place] % (Auto) 8.5 Eos % (Auto) 6.3 H Baso % (Auto) 0.9 Lymph # (Auto) 2.23 [place] # (Auto) 0.8 H Eos # (Auto) 0.6 H Baso # (Auto) 0.1 Abs Immat Gran (auto) 0.04 H Absolute Neuts (auto) 5.9 Absolute Nucleated RBC 0.0 Nucleated RBC % 0.0 Sodium 138 Potassium 3.7 Chloride 103 Carbon Dioxide 32 H Anion Gap 3 L BUN 19 Creatinine 1.50 H Estim Creat Clear Calc 45 Estimated GFR 46 L Glucose 103 Calcium 8.6 Magnesium 2.3 Quality VTE Prophylaxis VTE prophylaxis: mechanical ordered
--- NOTE | 2020-03-28 13:49 | PM.DS ---
DS: Admitting Diagnosis Admitting Diagnosis Admitting Diagnosis: hematuria DS: Discharge Diagnosis Discharge Diagnosis (1) BPH loc w urin obs/LUTS: Code(s): N40.1 - Benign prostatic hyperplasia with lower urinary tract symptoms Status: Acute Assessment and Plan: Patient presented to [facility] with hematuria/ clots clogging Blount catheter after recent transurethral resection of a bladder mass by Dr Miguel 03/23/20. He was discharged without Blount catheter 03/24 after voiding without difficulty. He experienced hematuria over the weekend, presented to outside hospital who placed Blount catheter. He then began to pass blot clots which likely clogged the catheter since he was urinating around the catheter. He underwent CBI which improved his hematuria and pt was able to urinate after a voiding trial. he is going to follow up with urology outpt and was educated about the worrisome signs and symptoms to come back to emergency room for. He is to hold his aspirin until Friday and if he has no further bleeding, he can restart this. (2) Gross hematuria: Code(s): R31.0 - Gross hematuria Status: Acute Assessment and Plan: As above, hemoglobin stable at 9.2 at discharge (3) Acute retention of urine: Code(s): R33.8 - Other retention of urine Status: Acute Assessment and Plan: Resolved (4) BPH (benign prostatic hyperplasia): Code(s): N40.0 - Benign prostatic hyperplasia without lower urinary tract symptoms Status: Chronic Assessment and Plan: As above (5) Anxiety: Code(s): F41.9 - Anxiety disorder, unspecified Status: Chronic Assessment and Plan: Stable, continue his home Paxil. (6) Hypertension: Code(s): I10 - Essential (primary) hypertension Status: Chronic Assessment and Plan: Last blood pressure 112/51 without lightheadedness or dizziness. Continue home medications (7) Hyperlipidemia: Code(s): E78.5 - Hyperlipidemia, unspecified Status: Chronic Assessment and Plan: Maintained on his home statin therapy. DS: Summary Hospital Course Hospital Course: Patient is a 74-year-old male who presented emergency room for inability to urinate after TURP procedure. He 1st went to an outside hospital and a Blount catheter was placed and was sent home. He then came to [facility] due to hematuria and incontinence with the catheter in place and draining around his catheter. In the ER his vitals were stable with the exception of his blood pressure which was high at 176/73. Initial white blood cell count 10.7, hemoglobin 10.1, hematocrit 30.0, platelets 258. BMP showed slightly abnormal creatinine 1.5 which is appears to be his baseline. The patient was admitted to the hospitalist service and continued on his home ciprofloxacin and he saw urology who did CBI during his stay which cleared up his urine. He still had a few clots the day of discharge. The blount catheter was removed and pt was able to urinate on his own after his voding trial. Overall, the patient is feeling well and eager for discharge. I spoke with Urology who is okay with him going home and them following him up in his office. The patient was educated about the worrisome signs and symptoms to come back to emergency room for and was discharged stable condition. He is to restart his aspirin on Friday as long as he has not had any more bleeding. Status at Discharge Functional status at discharge: independent ambulation Overall status at discharge: patient is back to baseline Time Spent with Patient Time attestation: Total time spent providing and/or coordinating discharge services:36 min Time spent: Greater than 30 minutes Exam Narrative: Exam Narrative: General: Well developed well nourished patient in NAD HEENT: normocephalic Neck: supple Neuro: Alert and oriented x4 CV:RRR Resp:CTA Abd: Soft, no
== END 2020-03-28 14:15 | disposition home or self-care (01) | DRG 726 ==
LOC: ANHED 18:32 → ANH3MEDSUR 19:20
PROVIDERS: Nurse Practitioner; Physician Assistant; Admitting Provider Family Medicine; Emergency Provider General Practice; PCP Family Medicine; Visit Provider Physician Assistant
DX: N40.1 Benign prostatic hyperplasia with lower urinary tract symptoms (principal); R31.0 Gross hematuria; R33.8 Other retention of urine; F41.9 Anxiety disorder, unspecified; I10 Essential (primary) hypertension; E78.5 Hyperlipidemia, unspecified; Z79.82 Long term (current) use of aspirin; Z79.899 Other long term (current) drug therapy; Z85.038 Personal history of other malignant neoplasm of large intestine; Z87.891 Personal history of nicotine dependence; Z98.890 Other specified postprocedural states
CPT/HCPCS: 36415; 80048; 80053; 82728; 83735; 84443; 85014; 85018; 85025; 85610; 85730; 99285; A9270; G0378

== ENCOUNTER 2021-11-07 14:16 | Observation (INO) | payer MEDICARE, OTHER, SELFPAY ==
[2021-11-07] VITALS (11 sets, daily range): BP systolic 130–162; BP diastolic 55–70; PULSE 53–93; RESP 12–20; TEMP 36.5–37.1; O2SAT 95–100; BMI 30.6
[2021-11-07 14:52] LABS: Basophils Percent Auto 0.4 % (0.2-1.2); Eosinophils Absolute Auto 0.2 K/mm3 (0-0.3); Eosinophils Percent Auto 2.2 % (0-4.4); Hematocrit 41.5 % (42.0-52.0); Hemoglobin 13.7 g/dL (14.0-18.0); Immature Granulocyte Absolute 0.04 K/mm3 (0.00-0.031); Immature Granulocyte Percent A 0.4 % (0-0.5); Lymphocytes Absolute Auto 1.35 K/mm3 (0.9-3.2); Mean Corpuscular Hemoglobin 29.8 pg (26-34); Mean Corpuscular Volume 90.4 fl (80-100); Mean Platelet Volume 9.8 fl (7.4-10.4); Monocytes Percent Auto 9.9 % (2.6-8.5); Neutrophils Percent Auto 73.1 % (45.5-73.1); Platelet Count Result 232 k/mm3 (150-375); Red Blood Count 4.59 M/mm3 (4.6-6.20); Red Cell Distribution Width 12.4 % (11.5-14.5); White Blood Count 9.6 K/mm3 (4.5-10.0)
[2021-11-07 15:08] LABS: Alanine Aminotransferase 18 U/L (6-50); Albumin Level 4.5 g/dL (3.5-5.1); Alkaline Phosphatase 78 U/L (38-126); Anion Gap 14 mmol/L (8-16); Aspartate Amino Transferase 24 U/L (17-59); Bilirubin,Total 0.9 mg/dL (0.2-1.3); Blood Urea Nitrogen 21 mg/dL (9-20); Calcium 9.4 mg/dL (8.4-10.2); Carbon Dioxide 26 mmol/L (22-30); Chloride 100 mmol/L (98-107); Estimated CRCL calculation 38 ml/min; Estimated Glomerular Filt Rate 46; Glucose 110 mg/dL (65-110); Potassium 4.1 mmol/L (3.4-5.0); Sodium 140 mmol/L (137-145)
--- NOTE | 2021-11-07 15:31 | ED.ABDPAIN ---
HPI - Abdominal Pain General Chief Complaint: Abdominal Pain Stated Complaint: appendicitis Time Seen by Provider: 11/07/21 14:23 Source: RN notes reviewed History of Present Illness HPI narrative: Patient presents emergency department for appendicitis. The patient states he began to have abdominal pain in the right lower quadrant on 2 days ago states was associated with a fever as well as nausea vomiting he gone to his PCP today and had a CT scan done as an outpatient that shows acute uncomplicated appendicitis. Patient states he has not had anything for the pain today and he denies any chest pain or shortness of Related Data Home Medications Medication Instructions Recorded Confirmed amlodipine 10 mg-benazepril 40 mg 1 cap PO HS 03/09/20 03/26/20 capsule (Lotrel) aspirin 81 mg tablet,delayed 81 mg PO DAILY 03/09/20 03/26/20 release (Kristofer Low Dose Aspirin) meloxicam 15 mg tablet (Mobic) 15 mg PO DAILY 03/09/20 03/26/20 paroxetine HCl 10 mg tablet (Paxil) 10 mg PO QAM 03/09/20 03/26/20 rosuvastatin 20 mg tablet (Crestor) 10 mg PO QAM 03/09/20 03/27/20 Allergies Allergy/AdvReac Type Severity Reaction Status Date / Time No Known Allergies Allergy Verified 11/07/21 15:26 Review of Systems Review of Systems: Gen.: Denies fevers or chills ENT: Denies congestion Respiratory: Denies shortness of breath or cough CV: Denies chest pain or palpitations GI: See HPI Musculoskeletal: Denies back pain or muscle pain Neuro: Denies numbness, tingling, weakness or focal weakness Skin: Denies rash Except as documented, all other systems reviewed and negative [facility] Past Medical History Medical History Anxiety BPH (benign prostatic hyperplasia) Carotid artery disease H/O colon cancer, stage I stage III with a colectomy with 1 lymph node involvement and chemotherapy. Hyperlipidemia Hypertension Peripheral vascular disease Surgical History Surgical History H/O carotid endarterectomy on the right knee scheduled to have 1 on the left H/O colectomy H/O colonoscopy with polypectomy S/P tonsillectomy and adenoidectomy S/P TURP Family History Family History Father Heart disease Hypertension Sibling Heart disease Hypertension Mother Heart disease Hypertension Social History Social History Social History: the patient stated that he quit smoking in 1994 and started to use smokeless tobacco he would chew tobacco and quit about 2 years ago. The patient lives with his who is listed as Marlene garza. he does admits his daughter Cecilia and his to be durable power attorney lawyer for healthcare. Patient desires to be a full code. 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 The patient denies any alcohol marijuana or illicit drugs. Smoking packs per day: 2 Smoking cigarettes per day: 40.0 Years smoked: 30 Smoking pack-years: 60.00 Smoking status: Former smoker Tobacco type: cigarettes and smokeless tobacco Smokeless tobacco user: chewing tobacco Additional smoking assessment comments: STATES 2PK/DAY/30=YRS QUIT 1994 Alcohol intake: current Drinks per week: 2 Alcohol use details: STATES MAYBE 3-4 DRINKS A MONTH Substance use: never Substance use type: does not use Gender identity (if verbalized by the patient): Male Sexual Orientation (if Verbalized by the Patient): Straight or Heterosexual Spiritual care concerns: No Exam Narrative: APPEARANCE: No acute distress, nontoxic, resting in bed HEENT: Normocephalic, atraumatic, OMM RESPIRATORY: No respiratory distress, clear to auscultation bilaterally with no rhonchi wheezing or rales CARDIOVASCULAR: RRR s murmur ABDOMINAL: Soft nondistended tender palpation right l
[2021-11-07 15:42] LABS: Prothrombin Time 12.5 Seconds (11.1-14.7)
[2021-11-07 15:43] LABS: Partial Thromboplastin Time 31.1 SECONDS (22.3-36.8)
--- NOTE | 2021-11-07 17:07 | WPDANESEPPF ---
Anes - Initial Pre Proc Eval Procedure: Operation Date: 11/07/21 17:30 Proposed Procedures p Laparoscopic Appendectomy; Possible Open - Chad Treviño MD Date/Time: 11/07/21 17:07 Surgeon: Chad Treviño MD Pre Op Diagnosis: appendicitis Patient Data Age: 76 Gender: M Height: 1.73 m Weight: 88 kg Last Vital Signs Temp 36.5 C 11/07/21 14:21 Pulse 63 11/07/21 14:21 Resp 18 11/07/21 14:21 BP 157/55 H 11/07/21 14:21 Pulse Ox 100 11/07/21 14:21 O2 Del Method Room Air 11/07/21 14:21 Allergies Allergy/AdvReac Type Severity Reaction Status Date / Time No Known Allergies Allergy Verified 11/07/21 15:26 Home Medications Medication Instructions Recorded Confirmed Type amlodipine 10 mg-benazepril 40 mg 1 cap PO HS 03/09/20 03/26/20 History capsule (Lotrel) aspirin 81 mg tablet,delayed 81 mg PO DAILY 03/09/20 03/26/20 History release (Kristofer Low Dose Aspirin) meloxicam 15 mg tablet (Mobic) 15 mg PO DAILY 03/09/20 03/26/20 History paroxetine HCl 10 mg tablet (Paxil) 10 mg PO QAM 03/09/20 03/26/20 History rosuvastatin 20 mg tablet (Crestor) 10 mg PO QAM 03/09/20 03/27/20 History Laboratory Tests 11/07/21 11/07/21 11/07/21 14:31 14:31 14:31 WBC 9.6 K/mm3 K/mm3 (4.5-10.0) RBC 4.59 M/mm3 L M/mm3 (4.6-6.20) Hgb 13.7 g/dL L D g/dL (14.0-18.0) Hct 41.5 % L % (42.0-52.0) MCV 90.4 fl fl (80-100) MCH 29.8 pg pg (26-34) MCHC 33.0 g/dl g/dl (32-36) RDW 12.4 % % (11.5-14.5) Plt Count 232 k/mm3 k/mm3 (150-375) MPV 9.8 fl fl (7.4-10.4) Immature Gran % (Auto) 0.4 % % (0-0.5) Neut % (Auto) 73.1 % % (45.5-73.1) Lymph % (Auto) 14.0 % L % (18.3-44.2) [place] % (Auto) 9.9 % H % (2.6-8.5) Eos % (Auto) 2.2 % % (0-4.4) Baso % (Auto) 0.4 % % (0.2-1.2) Lymph # (Auto) 1.35 K/mm3 K/mm3 (0.9-3.2) [place] # (Auto) 1.0 K/mm3 H K/mm3 (0.1-0.6) Eos # (Auto) 0.2 K/mm3 K/mm3 (0-0.3) Baso # (Auto) 0.0 K/mm3 K/mm3 (0.0-0.1) Abs Immat Gran (auto) 0.04 K/mm3 H K/mm3 (0.00-0.031) Absolute Neuts (auto) 7.0 K/mm3 H K/mm3 (1.3-6.7) Absolute Nucleated RBC 0.0 K/mm3 K/mm3 (0.0-0.012) Nucleated RBC % 0.0 % % (0.0-0.2) PT 12.5 Seconds Seconds (11.1-14.7) INR 1.0 APTT 31.1 SECONDS SECONDS (22.3-36.8) Sodium 140 mmol/L mmol/L (137-145) Potassium 4.1 mmol/L mmol/L (3.4-5.0) Chloride 100 mmol/L mmol/L (98-107) Carbon Dioxide 26 mmol/L mmol/L (22-30) Anion Gap 14 mmol/L mmol/L (8-16) BUN 21 mg/dL H mg/dL (9-20) Creatinine 1.50 mg/dL H mg/dL (0.7-1.3) Estim Creat Clear Calc 38 ml/min ml/min Estimated GFR 46 L (59 - ) Glucose 110 mg/dL mg/dL (65-110) Calcium 9.4 mg/dL mg/dL (8.4-10.2) Total Bilirubin 0.9 mg/dL mg/dL (0.2-1.3) AST 24 U/L U/L (17-59) ALT 18 U/L U/L (6-50) Alkaline Phosphatase 78 U/L U/L (38-126) Total Protein 8.0 g/dL g/dL (6.3-8.2) Albumin 4.5 g/dL g/dL (3.5-5.1) Blood Type Antibody Screen 11/07/21 14:31 WBC RBC Hgb Hct MCV MCH MCHC RDW Plt Count MPV Immature Gran % (Auto) Neut % (Auto) Lymph % (Auto) [place] % (Auto) Eos % (Auto) Baso % (Auto) Lymph # (Auto) [place] # (Auto) Eos # (Auto) Baso # (Auto) Abs Immat Gran (auto) Absolute Neuts (auto) Absolute Nucleated RBC Nucleated RBC % PT INR APTT Sodium Potassium Chloride Carbon Dioxide Anion Gap BUN Creatin
[2021-11-07] MEDS: LACTATED RINGERS 1,000 ML 30 ML IV CONT ×2 (17:15→18:47)
--- NOTE | 2021-11-07 17:22 | WPDHPUPDATE1 ---
History and Physical Update Update Date/Time: 11/07/21 17:22 History and Physical has been reviewed, including an updated exam of the patient. There are NO changes in the patient's condition. Risks, benefits, and alternatives have been discussed and questions answered. Patient agrees to proceed with procedure.
--- NOTE | 2021-11-07 17:22 | PM.IMHP ---
H&P: HPI History of Present Illness Date/Time: 11/07/21 17:22 Chief Complaint: Appendicitis Narrative: Patient is a 76-year-old man who lives in [place], [place]. He started having some left lower quadrant pain couple of days ago. This moved to the right lower quadrant and got worse. He had some fever. He went to his primary doctor today. A CT scan was done at an outside hospital and reportedly showed acute appendicitis. Patient came to the emergency room at [facility]. His white blood cell count is at the upper limit of normal. He has guarding and rebound tenderness in the right lower quadrant. He had a previous colon resection but does not know what part of the colon was removed. This apparently was a stage III colon cancer. He is taken to surgery now for laparoscopic appendectomy. Review of Systems Review of Systems: All systems reviewed & are unremarkable except as noted in HPI and below (HPI) Constitutional: Constitutional: Reports as per HPI and Reports fever(s) Cardiovascular: Cardiovascular: Denies chest pain, Denies diaphoresis, Denies dyspnea and Denies paroxysmal nocturnal dyspnea Respiratory: Respiratory: Denies chest congestion, Denies cough and Denies dyspnea Integumentary/Breasts: Skin/Breast: Denies lesions and Denies rash PMFSH Past Medical History Medical History (Updated 11/07/21 @ 17:28 by Chad Treviño MD) Anxiety BPH (benign prostatic hyperplasia) Carotid artery disease H/O colon cancer, stage I stage III with a colectomy with 1 lymph node involvement and chemotherapy. Hyperlipidemia Hypertension Peripheral vascular disease Surgical History Surgical History H/O carotid endarterectomy on the right knee scheduled to have 1 on the left H/O colectomy H/O colonoscopy with polypectomy S/P tonsillectomy and adenoidectomy S/P TURP Family History Family History Father Heart disease Hypertension Sibling Heart disease Hypertension Mother Heart disease Hypertension Social History Social History Social History: the patient stated that he quit smoking in 1994 and started to use smokeless tobacco he would chew tobacco and quit about 2 years ago. The patient lives with his who is listed as Marlene garza. he does admits his daughter Cecilia and his to be durable power erisa attorney for healthcare. Patient desires to be a full code. 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 The patient denies any alcohol marijuana or illicit drugs. Smoking packs per day: 2 Smoking cigarettes per day: 40.0 Years smoked: 30 Smoking pack-years: 60.00 Smoking status: Former smoker Tobacco type: cigarettes and smokeless tobacco Smokeless tobacco user: chewing tobacco Additional smoking assessment comments: STATES 2PK/DAY/30=YRS QUIT 1994 Alcohol intake: current Drinks per week: 2 Alcohol use details: STATES MAYBE 3-4 DRINKS A MONTH Substance use: never Substance use type: does not use Gender identity (if verbalized by the patient): Male Sexual Orientation (if Verbalized by the Patient): Straight or Heterosexual Spiritual care concerns: No Meds Home Medications and Allergies Home Medications Medication Instructions Recorded Confirmed Type amlodipine 10 mg-benazepril 40 mg 1 cap PO HS 03/09/20 03/26/20 History capsule (Lotrel) aspirin 81 mg tablet,delayed 81 mg PO DAILY 03/09/20 03/26/20 History release (Kristofer Low Dose Aspirin) meloxicam 15 mg tablet (Mobic) 15 mg PO DAILY 03/09/20 03/26/20 History paroxetine HCl 10 mg tablet (Paxil) 10 mg PO QAM 03/09/20 03/26/20 History rosuvastatin 20 mg tablet (Crestor) 10 mg PO QAM 03/09/20 03/27/20 History Allergies Allergy/AdvReac Type Severity Reaction Status Date / Time No Known Allergies
[2021-11-07] MEDS: BUPIVACAINE/EPINEPHRINE 0.25% 50 ML VIAL 22 ML INFILTRATE (17:45)
--- NOTE | 2021-11-07 18:58 | P.OP_ITS ---
Procedure Note - Detailed Date of Procedure 11/07/21 Pre-op Diagnosis appendicitis Post-op Diagnosis Same Procedure Performed Laparoscopic appendectomy Surgeon Chad Treviño MD [employer] Becca Roberts [facility] Anesthesia General and Local (0.25% Marcaine with epinephrine) Indications Patient has a 2 day history of lower abdominal pain and fever. The pain moved to the right lower quadrant. He had a CT scan at an outside hospital that showed acute appendicitis. He came to our emergency room. Examination there was consistent with this diagnosis. He is taken to surgery now for laparoscopic appendectomy. Findings There were numerous anterior abdominal wall adhesions that were primary small bowel. These were adhesed to the undersurface of the old incision for his colon resection. The appendix was retrocecal and had dense retroperitoneal fat adhesions associated with it. Some mobilization of the splenic flexure was required. There was no evidence of a ruptured appendix. No evidence of a tumor. Description of Procedure Patient was taken to surgery and induced into general anesthesia. The abdomen is prepped and draped. Trocars were placed in the usual fashion using local anesthetic and applied Medical optical trocars. Patient was placed in Trendelenburg with the right-side elevated. We encountered immediately numerous anterior abdominal wall adhesions which were predominantly small bowel. These were carefully taken down from the anterior abdominal wall. In areas where they were particularly dense, some of the abdominal wall was taken down to avoid any entry into the bowel. This went well. Minimal cautery was used. Once these adhesions were down, we were then able to gain access to the cecum. The appendix was not immediately apparent. I did have to divide some adhesions to the cecum as the appendix was retroperitoneal. Eventually the base of the appendix was found. There was a lot of inflammatory tissue around the appendix. Careful dissection posterior and distal to the appendix was carried out. We also carefully dissected the appendix from inflammatory adhesions on its anterior aspect. Eventually we were able to dissect out the entire appendix although some of the retroperitoneal fat was left attached to it due to the inflammation. I then skeletonized the base of the appendix. The appendix was ligated at its base with a Vicryl endoloop. We amputated the appendix just above the ligature. The mucosa of the appendiceal stump was cauterized. The appendix was placed in an Endo-Catch bag and retrieved through the 10 11 left lo wer quadrant trocar site. I then replaced the trocar. We suctioned and irrigated all the areas of dissection. There was some clotted blood and serosanguineous fluid there. This was suctioned away. We carefully checked for any signs of bleeding. None were found. I really looked at all the small bowel adhesions that had been taken down and no abnormalities were noted there either. I then used the Jose cone and Jose-Fidel suture pass device. An 0 Vicryl suture was used to close the fascia at the 10 11 left lower quadrant trocar site. We then evacuated CO2 and removed the trocar sleeves. Skin wounds were closed with subcuticular 4-0 Monocryl skin suture. The wounds were dressed with Exofin surgical adhesive. Patient was then awakened and taken to recovery in good condition. Sponge and needle counts were correct x2. Estimated Blood Loss -10.0 Drains No Pathology Yes (Appendix) Complications No immediate complications Condition Stable Disposition PACU [facility] Billing Surgery - Charge Forward: Surgery Billing (Laparoscopic appendectomy)
--- NOTE | 2021-11-07 20:48 | ADMGEN ---
This patient, Timo Pineda, was admitted to Medical Room 348-01. Patient/family oriented to hospital policies and general routines including ID bracelet, bed and alarms, visiting hours, pain management, procedures, bathroom and other care routines, personal items, smoking policy, room service/diet, and visiting hours. Information on how to activate the Rapid Response Team has been discussed. Patient/Family are encouraged to report perceived risks to care and to ask questions if they do not understand what they are told or what they should do.
[2021-11-08 01:50] VITALS: BP 150/63; PULSE 76; RESP 14; TEMP 36.7; O2SAT 96
[2021-11-08] MEDS: ACETAMINOPHEN 500 MG TABLET PO ×2 (03:53→09:50)
[2021-11-08 05:25] LABS: Hematocrit 39.5 % (42.0-52.0); Hemoglobin 13.3 g/dL (14.0-18.0); Mean Corpuscular HGB Conc 33.7 g/dl (32-36); Mean Corpuscular Hemoglobin 30.4 pg (26-34); Mean Corpuscular Volume 90.4 fl (80-100); Mean Platelet Volume 9.8 fl (7.4-10.4); Platelet Count Result 225 k/mm3 (150-375); Red Blood Count 4.37 M/mm3 (4.6-6.20); Red Cell Distribution Width 12.2 % (11.5-14.5); White Blood Count 8.1 K/mm3 (4.5-10.0)
[2021-11-08 05:49] LABS: Anion Gap 12 mmol/L (8-16); Blood Urea Nitrogen 22 mg/dL (9-20); Calcium 8.9 mg/dL (8.4-10.2); Carbon Dioxide 25 mmol/L (22-30); Chloride 100 mmol/L (98-107); Estimated CRCL calculation 43 ml/min; Estimated Glomerular Filt Rate 46; Glucose 163 mg/dL (65-110); Potassium 4.4 mmol/L (3.4-5.0); Sodium 137 mmol/L (137-145)
[2021-11-08 05:50] VITALS: BP 138/64; PULSE 61; RESP 16; TEMP 36.5; O2SAT 95
[2021-11-08] MEDS: ENOXAPARIN 40 MG/0.4 ML SYRINGE SUB-Q (08:23)
--- NOTE | 2021-11-08 10:20 | WPDANESPN ---
Anes - Prog Note Post-Op Date/Time: 11/08/21 10:20 Cardiovascular status: normal Respiratory status: normal Airway patency: baseline Mental status: baseline Post-Op hydration status: normal Vital Signs: Last Vital Signs Temp 36.5 C 11/08/21 05:50 Pulse 61 11/08/21 05:50 Resp 16 11/08/21 05:50 BP 138/64 11/08/21 05:50 Pulse Ox 95 11/08/21 05:50 O2 Del Method Room Air 11/07/21 19:41 O2 Flow Rate 10 11/07/21 19:00 Pain Score (VAS): 04/19 I/O: Intake & Output 11/07/21 11/08/21 11/08/21 23:59 07:59 15:59 Intake Total 150 300 240 Output Total 525 Balance 150 -225 240 Laboratory Tests 11/08/21 05:08 11/08/21 05:08 11/07/21 11/07/21 11/07/21 14:31 14:31 14:31 WBC 9.6 RBC 4.59 L Hgb 13.7 L D Hct 41.5 L MCV 90.4 MCH 29.8 MCHC 33.0 RDW 12.4 Plt Count 232 MPV 9.8 Immature Gran % (Auto) 0.4 Neut % (Auto) 73.1 Lymph % (Auto) 14.0 L [place] % (Auto) 9.9 H Eos % (Auto) 2.2 Baso % (Auto) 0.4 Lymph # (Auto) 1.35 [place] # (Auto) 1.0 H Eos # (Auto) 0.2 Baso # (Auto) 0.0 Abs Immat Gran (auto) 0.04 H Absolute Neuts (auto) 7.0 H Absolute Nucleated RBC 0.0 Nucleated RBC % 0.0 PT 12.5 INR 1.0 APTT 31.1 Sodium 140 Potassium 4.1 Chloride 100 Carbon Dioxide 26 Anion Gap 14 BUN 21 H Creatinine 1.50 H Estim Creat Clear Calc 38 Estimated GFR 46 L Glucose 110 Calcium 9.4 Total Bilirubin 0.9 AST 24 ALT 18 Alkaline Phosphatase 78 Total Protein 8.0 Albumin 4.5 Blood Type Antibody Screen 11/07/21 11/08/21 11/08/21 14:31 05:08 05:08 WBC 8.1 RBC 4.37 L Hgb 13.3 L Hct 39.5 L MCV 90.4 MCH 30.4 MCHC 33.7 RDW 12.2 Plt Count 225 MPV 9.8 Immature Gran % (Auto) Neut % (Auto) Lymph % (Auto) [place] % (Auto) Eos % (Auto) Baso % (Auto) Lymph # (Auto) [place] # (Auto) Eos # (Auto) Baso # (Auto) Abs Immat Gran (auto) Absolute Neuts (auto) Absolute Nucleated RBC Nucleated RBC % PT INR APTT Sodium 137 Potassium 4.4 Chloride 100 Carbon Dioxide 25 Anion Gap 12 BUN 22 H Creatinine 1.50 H Estim Creat Clear Calc 43 Estimated GFR 46 L Glucose 163 H Calcium 8.9 Total Bilirubin AST ALT Alkaline Phosphatase Total Protein Albumin Blood Type O Positive Antibody Screen Negative Post-procedural complaints: none Patient Feedback: Patient satisfied with anesthetic care.
--- NOTE | 2021-11-08 11:51 | PM.DS ---
DS: Admitting Diagnosis Discharge Date 11/08/2021 Admitting Diagnosis Acute appendicitis Hypertension BPH History of colon cancer DS: Discharge Diagnosis Discharge Diagnosis (1) Acute appendicitis: Code(s): K35.80 - Unspecified acute appendicitis Status: Acute (2) Acute retention of urine: Code(s): R33.8 - Other retention of urine Status: Acute (3) BPH (benign prostatic hyperplasia): Code(s): N40.0 - Benign prostatic hyperplasia without lower urinary tract symptoms Status: Chronic (4) Hypertension: Code(s): I10 - Essential (primary) hypertension Status: Chronic (5) H/O colon cancer, stage I: Code(s): Z85.038 - Personal history of other malignant neoplasm of large intestine Status: Chronic DS: Summary Hospital Course Reason for hospitalization: This is a 76-year-old man who presented to an outside hospital with complaints of abdominal pain. He initially was started with left lower quadrant abdominal pain for a few days and this migrated to his right lower quadrant and worsened. He had associated fever. He went to his PCP. CT scan was done at the outside hospital and reportedly showed acute appendicitis. He then came to the ER at [facility]. He was admitted to our service for surgical evaluation of acute appendicitis. Hospital Course: The patient was started on broad-spectrum IV antibiotics and taken urgently to the OR for a laparoscopic appendectomy yesterday by Dr. Treviño. He had intra-abdominal adhesions from his previous colon resection and was found to have an inflamed appendix but no evidence of perforation. The surgery was done later in the afternoon and he was monitored overnight last night. He did have urinary retention and required straight catheterization around 5:00 a.m. this morning. He has since been voiding without any difficulties. He is tolerating a regular diet. Pain is well controlled. Tolerating activity. No other complaints at this time. Stable for discharge today and was instructed to follow up with Dr. Treviño in our office in 2 weeks. Status at Discharge Functional status at discharge: independent ambulation Overall status at discharge: patient is progressing back to baseline Time Spent with Patient Time attestation: Total time spent providing and/or coordinating discharge services: Exam Const: General: comfortable, no acute distress and awake Orientation/consciousness: patient oriented x3 Resp: Effort & Inspection: normal respiratory effort Auscultation: clear to auscultation bilaterally Cardio: Rate: regular rate Rhythm: regular rhythm GI: Inspection: non-distended and incision (Incisions dry and intact) GI Palp: Yes Soft to palpation, Yes Tenderness to palpation present (GI) (incisional) and No Guarding due to palpation present (GI) Auscultation: normal bowel sounds Neuro: General: moves all extremities and no focal motor deficits Extrem: General: no calf tenderness and no edema Psych: Mental Status: mental status grossly normal Insight: Good insight present (Psych) Judgement: Good judgement present (Psych) DS: Data Data Completed and Pending Pending studies at discharge: Pending at discharge 11/07/21 18:20 Surgical [PTH] Routine Labs on day of discharge: Labs from last 24 hours 11/08/21 11/08/21 11/07/21 05:08 05:08 14:31 WBC 8.1 RBC 4.37 L Hgb 13.3 L Hct 39.5 L MCV 90.4 MCH 30.4 MCHC 33.7 RDW 12.2 Plt Count 225 MPV 9.8 Immature Gran % (Auto) Neut % (Auto) Lymph % (Auto) [place] % (Auto) Eos % (Auto) Baso % (Auto) Lymph # (Auto) [place] # (Auto) Eos # (Auto) Baso # (Auto) Abs Immat Gran (auto) Absolute Neuts (auto) Absolute Nucleated RBC Nucleated RBC % PT INR APTT Sodium 137 Potassium 4.4 Chloride 100 Carbon Dioxide 25 Anion Gap 12 BUN 22 H Creatinine 1.50 H Estim Creat Clear C
== END 2021-11-08 14:30 | disposition home or self-care (01) ==
LOC: ANHED 16:04 → ANHSURGERY 16:05 → ANH3MED 19:49 → ANHSURGERY 11-08 12:19 → ANH3MED 11-08 12:19
PROVIDERS: Nurse Practitioner Family; Admitting Provider Surgery; Emergency Provider Emergency Medicine; PCP Family Medicine; Visit Provider Surgery
PROC: 0DTJ4ZZ Resection of Appendix, Percutaneous Endoscopic Approach (ICD-10-PCS; CPT 44970; principal; 2021-11-07 17:30)
DX: K35.80 Unspecified acute appendicitis (principal); R33.8 Other retention of urine; N40.0 Benign prostatic hyperplasia without lower urinary tract symptoms; Z85.038 Personal history of other malignant neoplasm of large intestine; I10 Essential (primary) hypertension; F41.9 Anxiety disorder, unspecified; I77.9 Disorder of arteries and arterioles, unspecified; E78.5 Hyperlipidemia, unspecified; I73.9 Peripheral vascular disease, unspecified; E66.9 Obesity, unspecified; Z68.30 Body mass index [BMI] 30.0-30.9, adult; Z72.89 Other problems related to lifestyle; Z87.891 Personal history of nicotine dependence; Z92.21 Personal history of antineoplastic chemotherapy; Z79.82 Long term (current) use of aspirin; Z79.899 Other long term (current) drug therapy; Z82.49 Family history of ischemic heart disease and other diseases of the circulatory system
CPT/HCPCS: 44970; 36415; 80048; 80053; 85025; 85027; 85610; 85730; 86850; 86900; 86901; 88304; 96365; 99285; A9270; G0378; J0330; J1100; J1650; J2405; J2543; J2704; J2710; J3010; J7120